=== PATIENT | female | born 1965 | race African-American/Black ===

== ENCOUNTER → 2017-05-01 | Day surgery (SDC) | payer OTHER ==
[~2017-05-01] MED LIST: ALBU6.7H INH; AMLO5TAB22 PO; DIAZ5 PO; EPIP0.3I IM; LOVA20TA PO; MECL-62 PO; PROPOFOL 500 MG/50 ML BTL IV ONE; ZOFR8TAB4 SL
--- NOTE | 2017-05-01 13:58 | GIPROC ---
[facility] [address] [facility], [address] COLONOSCOPY PROCEDURE REPORT EXAM DATE: 05/01/2017 PATIENT NAME: Amanda Bach MR #: [id number] BIRTHDATE: 1965 ENDOSCOPIST: Alex Jeffery MD ORDER #: [id number] CASTING ASSISTANT: Phong Dean RN STATUS: outpatient INDICATIONS: The patient is a 51 yr old female here for a colonoscopy due to average risk patient for colon cancer PROCEDURE PERFORMED: Colonoscopy with polypectomy MEDICATIONS: None and Per Anesthesia. PREP QUALITY: good ESTIMATED BLOOD LOSS: None CONSENT: The patient understands the risks and benefits of the procedure and understands that these risks include, but are not limited to: sedation, allergic reaction, infection, perforation and/or bleeding. Alternative means of evaluation and treatment include, among others: physical exam, x-rays, and/or surgical intervention. The patient elects to proceed with this endoscopic procedure. medical equipment was checked for proper function. Hand hygiene and appropriate measures for infection prevention was taken. After the risks, benefits and alternatives of the procedure were thoroughly explained, Informed consent was verified, confirmed and timeout was successfully executed by the treatment team. A digital exam revealed no abnormalities of the rectum The EC-[id number] ([id number]) and EC-[id number] ([id number]) endoscope was introduced through the anus and advanced to the cecum, which was identified by both the appendix and ileocecal valve. The instrument was then slowly withdrawn as the colon was fully examined. COLON FINDINGS: A smooth pedunculated polyp measuring 8 mm in size was found in the transverse colon. A polypectomy was performed using snare cautery. The resection was complete and the polyp tissue was completely retrieved. Moderate diverticulosis was noted throughout the entire examined colon. The colon mucosa was otherwise normal. Retroflexed views revealed no abnormalities The scope was then completely withdrawn from the patient and the procedure terminated. PROCEDURE WITHDRAWAL TIME:8.8minutes ADVERSE EVENTS: There were no complications. IMPRESSIONS: 1. A pedunculated polyp was found in the transverse colon; polypectomy was performed using snare cautery 2. Moderate diverticulosis was noted throughout the entire examined colon 3. The colon mucosa was otherwise normal 4. Retroflexed views revealed no abnormalities 5. Revealed no abnormalities of the rectum RECOMMENDATIONS: 1. Await biopsy results. Biopsy results will not be ready for 7-10 days. If you don't hear from us in two weeks, call our office for results. 2. Yearly hemoccult 3. High fiber diet 4. Follow-up: GI Clinic PRN RECALL: Return 5 years Colonoscopy Alex Jeffery MD eSigned: Alex Jeffery MD 05/01/2017 1:57 PM cc: Giulia Duncan [facility] PATIENT NAME: Amanda Bach MR#: [id number]
== END | disposition home or self-care (01) ==
LOC: ESDC 10:04
PROVIDERS: ATTEND Internal Medicine Gastroenterology
DX: Z12.11 Encounter for screening for malignant neoplasm of colon (principal); D12.3 Benign neoplasm of transverse colon; K57.90 Diverticulosis of intestine, part unspecified, without perforation or abscess without bleeding
CPT/HCPCS: 88305

== ENCOUNTER 2017-10-21 21:56 | Emergency (ER) | payer OTHER ==
[~2017-10-21] VITALS: Ht 160 cm; Wt 122.1 kg
[~2017-10-21 21:56] MED LIST changes: -PROPOFOL 500 MG/50 ML BTL IV ONE
[2017-10-21 21:59] VITALS: BP 140/80; PULSE 88; RESP 18; TEMP 97.8; O2SAT 99
[2017-10-21] MEDS ORDERED: EPIN1INJ17 IM (22:11)
[2017-10-21] MEDS ORDERED: TRIA37.5 PO (22:11)
[2017-10-21] MEDS ORDERED: LOVA20TA PO (22:11)
[2017-10-21] MEDS ORDERED: VITA1000 PO (22:11)
--- NOTE | 2017-10-21 22:22 | PD ---
HPI . Back pain Chief Complaint: Musculoskeletal Complaint Time Seen by Provider: 22:07 Travel History International Travel<30 days: No Contact w/Intl Traveler<30days: No Traveled to known affect area: No History of Present Illness HPI Patient presents with a chief complaint of left flank pain. Onset was early this morning. Pain has come and gone throughout the course the day. She states that it is getting progressively worse. She describes it as a stabbing pain which she rates at 8/10. Pain is exacerbated by sitting and improved by standing. She has noted no relief of her pain with ibuprofen 2 doses of 600 mg each. Last dose was at 4 PM. She denies any associated urinary symptoms. PFSH Past Medical History Asthma: Yes Heart Rhythm Problems: No Cardiovascular Problems: No High Cholesterol: Yes Congestive Heart Failure: No Diabetes: No Diminished Hearing: No Hypertension: Yes Respiratory: Yes (Asthma ) Myocardial Infarction: No Tetanus Vaccination: > 5 Years Influenza Vaccination: Yes ?: Not : 4 Para: 4 Miscarriage: 0 : 0 Past Surgical History Coronary Artery Bypass Graft: No Tonsillectomy: Yes Social History Alcohol Use: No Tobacco Use: No Substance Use: No Allergies-Medications (Allergen,Severity, Reaction): Coded Allergies: Fish Containing Products (Unverified Allergy, Severe, SWELLING & SHORTNESS OF BREATH, 10/21/17) penicillin G (Unverified Allergy, Severe, 10/21/17) shellfish derived (Verified Allergy, Severe, Anaphylaxis, 10/21/17) Reported Meds & Prescriptions Reported Meds & Active Scripts Active Reported Vitamin D-1000 (Cholecalciferol) 1,000 Unit Tab 1,000 Units PO DAILY Epinephrine Inj (Epinephrine) 0.3 Mg/0.3 Ml Pfpen 0.3 Mg IM ONCE PRN Triamterene-Hydrochlorothiazide 37.5-25 Mg Tab 1 Tab PO DAILY Lovastatin 20 Mg Tab 20 Mg PO DAILY Review of Systems Except as stated in HPI: all other systems reviewed are Neg Physical Exam Narrative GENERAL: Awake and alert and in no acute distress. SKIN: Warm and dry. HEAD: Normocephalic/atraumatic. EYES: Pupils are equal. Extraocular movements are intact. NECK: Normal range of motion. CARDIOVASCULAR: Regular rate and rhythm. RESPIRATORY: Nonlabored respirations. MUSCULOSKELETAL: No tenderness to percussion along the lumbar spine. She does have tenderness to percussion in the left CVA area. NEUROLOGICAL: Nonfocal. PSYCHIATRIC: Appropriate mood and affect. Data Data Last Documented VS Vital Signs Date Time Temp Pulse Resp B/P (MAP) Pulse Ox O2 Delivery O2 Flow Rate FiO2 10/21/17 21:59 97.8 88 18 140/80 (100) [address] Abd/Pel W/O Iv Contrast (10/21/17 22:18) Urinalysis - C+S If Indicated (10/21/17 22:18) Ed Urine Pregnancytest Poc (10/21/17 22:18) ^ Saline Lock (10/21/17 22:18) Ketorolac Inj (Toradol Inj) (10/21/17 22:30) Labs Laboratory Tests Test 10/21/17 22:30 Urine Color YELLOW Urine Turbidity CLEAR Urine pH 5.0 Urine Specific Dawson LESS/EQUAL 1.005 Urine Protein NEG mg/dL Urine Glucose (UA) NEG mg/dL Urine Ketones NEG mg/dL Urine Occult Blood TRACE Urine Nitrite NEG Urine Bilirubin NEG Urine Urobilinogen 0.2 MG/DL Urine Leukocyte Esterase NEG Urine RBC 3-5 /hpf Urine WBC 0-2 /hpf Urine Squamous Epithelial Cells 6-8 /hpf Urine Bacteria OCC /hpf Microscopic Urinalysis Comment CULT NOT INDICATED MDM Medical Decision Making Medical Screen Exam Complete: Yes Emergency Medical Condition: Yes Differential Diagnosis Differential diagnosis of flank pain includes but is not limited to kidney stone , pyelonephritis, musculoskeletal pain, PE Narrative Course This patient presents with chief complaint of left flank pain. It is probably musculoskeletal. However, kidney stone for pyelonephritis cannot be ruled out based upon her H&P. UA and CT are pending. She is driving. I am treating her pain with Toradol initially. UA is neg for infection. Last Impressions Abdomen/Pelvis CT 10/21/177 Signed Impressions: CONCLUSION: 1. Linear calculus in the mid left ureter measuring about 7 mm in length but 2 .5 mm in diameter. This is not associated with hydronephrosis. No bladder calcu li. No renal calculi. 2. Colonic diverticulosis without evidence for diverticulitis. She will be discharged home with prescriptions for Percocet, Phenergan and Flomax. E-Jemstepe has been queried and reviewed. Diagnosis Primary Impression: Flank pain Additional Impression: Kidney stone Referrals: Owen Jordan MD 2 days Patient Instructions: General Instructions, Kidney Stones (DC) Med/Other Pt SpecificInfo: Prescription(s) given Scripts Ibuprofen (Ibuprofen) 800 Mg Tab 800 MG PO Q8H Y for Pain/Inflammation, #60 TAB 0 Refills Prov: Harriet Zaragoza MD 10/21/17 Tamsulosin (Flomax) 0.4 Mg Cap 0.4 MG PO HS for Manage Prostate Problems, #30 CAP 0 Refills Prov: Harriet Zaragoza MD 10/21/17 Promethazine (Phenergan) 25 Mg Tablet 25 MG PO Q6H Y for NAUSEA OR VOMITING, #12 TAB 0 Refills Prov: Harriet Zaragoza MD 10/21/17 Oxycodone-Acetaminophen (Percocet) 5-325 mg Tab 1 TAB PO Q4H Y for PAIN, #12 TAB 0 Refills Prov: Harriet Zaragoza MD 10/21/17 Disposition: 01 DISCHARGE HOME Condition: Stable Harriet Zaragoza MD October 21, 2017 22:22
[2017-10-21] MEDS ORDERED: KETOROLAC TROMETHAMINE 30 MG/ML (IVP) VIAL IV PUSH ONE (22:30)
[2017-10-21 22:36] LABS: BILIRUBIN, URINE NEG (NEG); BLOOD, URINE TRACE (NEG); GLUCOSE,URINE NEG (NEG); KETONE, URINE NEG (NEG); NITRITE,URINE NEG (NEG); URINE COLOR YELLOW (YELLW/STRAW); URINE LEUKOCYTE ESTERASE NEG (NEG)
[2017-10-21 22:42] LABS: BACTERIA, URINE OCC /hpf; WBC, URINE 0-2 /hpf (0-5)
--- NOTE | 2017-10-21 23:00 | RADRPT ---
EXAM DATE: 10/21/2017 10:49 PM EDT AGE/SEX: 51 years / Female INDICATIONS: Left flank pain today. CLINICAL DATA: This is the patient's initial encounter. Patient reports that signs and symptoms have been present for 1 day and indicates a pain score of 8/10. MEDICAL/SURGICAL HISTORY: Hypertension. Tonsillectomy. RADIATION DOSE: 24.90 CTDI (mGy) ; Patient body habitus COMPARISON: No prior [place] exams available for comparison. TECHNIQUE: Multiple contiguous axial images were obtained through the abdomen. Images were obtained using multiple row detector helical technique. Using dose reduction techniques, radiation dose was ke pt as low as reasonably achievable to obtain optimal diagnostic quality images. FINDINGS: Visualized lung bases are clear. No acute findings in the liver, spleen, adrenals, kidneys or pancrea s. There is a linear calcification in the mid left ureter extending over a length of about 7 mm but h as a transverse diameter hernia about 2.5 mm. No bladder calculi are identified. CONCLUSION: 1. Linear calculus in the mid left ureter measuring about 7 mm in length but 2.5 mm in diameter. Thi s is not associated with hydronephrosis. No bladder calculi. No renal calculi. 2. Colonic diverticulosis without evidence for diverticulitis. Electronically signed by: Miguel Angel Rico MD 10/21/2017 10:59 PM EDT
[2017-10-21] MEDS ORDERED: TAMS5CAP PO (23:09)
[2017-10-21] MEDS ORDERED: PERC5TAB12 PO (23:09)
[2017-10-21] MEDS ORDERED: PROM25TA10 PO (23:09)
[2017-10-21] MEDS ORDERED: IBUP1TAB7 PO (23:09)
[2017-10-21 23:31] VITALS: BP 141/82
== END 2017-10-21 23:40 | disposition home or self-care (01) ==
LOC: PHEFT 21:56
DX: R10.9 Unspecified abdominal pain (principal); N20.0 Calculus of kidney; J45.909 Unspecified asthma, uncomplicated; E78.00 Pure hypercholesterolemia, unspecified; I10 Essential (primary) hypertension
CPT/HCPCS: 74176; 81001; 84703; 96374; 99284; J1885